=== PATIENT | female | born 1985 | race Caucasian/White ===

== ENCOUNTER 2017-06-19 21:24 | Emergency (ER) | payer MEDICAID ==
[~2017-06-19] VITALS: Ht 152.4 cm; Wt 50.0 kg
[~2017-06-19 21:24] MED LIST: GABA-341 PO; PHEN-873 PO
[2017-06-19 22:33] LABS: BASOPHILS % (AUTO) 0.3 % (0-1); EOSINOPHILS # (AUTO) 0.8 X10'3 (0-0.9); EOSINOPHILS % (AUTO) 8.2 % (0-6); HEMOGLOBIN 14.2 g/dl (12.0-16.0); LYMPHOCYTES # (AUTO) 3.9 X10'3 (1.1-4.8); LYMPHOCYTES % (AUTO) 38.9 % (21-51); MEAN CORPUSCULAR HEMOGLOBIN 33.9 PG (27.0-31.0); MEAN CORPUSCULAR HGB CONC 35.6 % (33.0-36.5); MEAN CORPUSCULAR VOLUME 95.3 FL (78-98); MEAN PLATELET VOLUME 7.8 FL (7.4-10.4); MONOCYTES % (AUTO) 9.6 % (2-12); NEUTROPHILS # (AUTO) 4.3 X10'3 (1.8-7.7); PLATELET COUNT 266 X10'3 (140-440); RED BLOOD COUNT 4.19 X10'6 (4.20-5.60); RED CELL DISTRIBUTION WIDTH 12.6 % (11.5-14.5); WHITE BLOOD COUNT 10.1 X10'3 (4.5-11.0)
[2017-06-19 22:42] LABS: PARTIAL THROMBOPLASTIN TIME 27 SECONDS (22-32); PROTHROMBIN TIME 10.4 SECONDS (9.0-12.0)
[2017-06-19 22:56] LABS: ANION GAP 4 (8-16); BILIRUBIN,TOTAL 0.3 MG/DL (0.1-1.0); BLOOD UREA NITROGEN 13 MG/DL (7-18); BUN/CREATININE RATIO 15.3 (6.6-38.0); CALCIUM 8.7 MG/DL (8.5-10.1); CHLORIDE 104 MMOL/L (99-107); CREATININE 0.85 MG/DL (0.40-0.90); GLUCOSE 81 MG/DL (70-104); POTASSIUM 4.1 MMOL/L (3.5-5.1); SODIUM 140 MMOL/L (135-145); TOTAL CARBON DIOXIDE 32.1 MMOL/L (24-32); TOTAL PROTEIN 7.2 G/DL (6.4-8.2); eGFR 77 ML/MIN
[2017-06-19 22:57] LABS: ALANINE AMINOTRANSFERASE 30 U/L (12-78); ALBUMIN 3.7 G/DL (3.4-5.0); ALBUMIN/GLOBULIN RATIO 1.1 (1.1-1.5); ALKALINE PHOSPHATASE 60 IU/L (46-116); ASPARTATE AMINO TRANSFERASE 13 U/L (10-37)
[2017-06-19 23:28] LABS: D-DIMER 0.23 MG/L FEU (0-0.50)
[2017-06-20] MEDS ORDERED: BENZ-16 PO (00:40)
[2017-06-20] MEDS ORDERED: AZIT-63 PO (00:40)
[2017-06-20 01:24] VITALS: BP 112/72
== END 2017-06-20 01:25 | disposition home or self-care (01) ==
LOC: ER 21:25
DX: J40 Bronchitis, not specified as acute or chronic (principal); G89.29 Other chronic pain; Z88.5 Allergy status to narcotic agent; Z79.899 Other long term (current) drug therapy
CPT/HCPCS: 36415; 71045; 80053; 83880; 84484; 85025; 85379; 85610; 85730; 93005; 99285

== ENCOUNTER 2017-10-21 20:24 | Emergency (ER) | payer MEDICAID ==
[~2017-10-21] VITALS: Ht 152.4 cm; Wt 54.8 kg
[2017-10-21] MEDS ORDERED: hydrOXYzine 25 MG tablet PO ONE (21:50)
[2017-10-21 22:31] VITALS: BP 118/62
[2017-10-21] MEDS ORDERED: HYDR-3686 PO (22:40)
== END 2017-10-21 22:59 | disposition home or self-care (01) ==
LOC: ER 20:25
DX: F41.9 Anxiety disorder, unspecified (principal); G89.29 Other chronic pain; F11.90 Opioid use, unspecified, uncomplicated; Z88.5 Allergy status to narcotic agent
CPT/HCPCS: 99284; Q0177

== ENCOUNTER 2020-06-21 13:19 | Emergency (ER) | payer MEDICAID ==
[~2020-06-21] VITALS: Ht 152.4 cm; Wt 65.9 kg
[~2020-06-21 13:19] MED LIST changes: +HYDR-3686 PO; +PHEN-786 PO; -PHEN-873 PO
[2020-06-21 13:25] VITALS: BP 136/84
== END 2020-06-21 13:30 | disposition left against medical advice (07) ==
LOC: ER 13:20
DX: M79.606 Pain in leg, unspecified (principal); R05 Cough; Z53.21 Procedure and treatment not carried out due to patient leaving prior to being seen by health care provider

== ENCOUNTER 2023-07-10 13:09 | Outpatient (CLI) | payer MEDICAID | END 2023-07-10 23:59 | disposition home or self-care (01) | LOC: RAD 13:09 | PROVIDERS: ATTEND General Practice | DX: F11.20 Opioid dependence, uncomplicated (principal) | CPT/HCPCS: 93005 ==

== ENCOUNTER 2023-09-18 14:42 | Outpatient (CLI) | payer MEDICAID | END 2023-09-18 23:59 | disposition home or self-care (01) | LOC: CARD DIAG 14:42 | PROVIDERS: ATTEND Family Medicine | DX: R07.9 Chest pain, unspecified (principal); I08.1 Rheumatic disorders of both mitral and tricuspid valves | CPT/HCPCS: 93306 ==